=== PATIENT | female | born 1980 | race Caucasian/White ===

== ENCOUNTER 2017-05-01 20:02 | Outpatient (CLI) | payer MEDICAID ==
[2017-05-01] MEDS ORDERED: LACTATED RINGER'S 1,000 ML IV* (23:00)
[2017-05-01] MEDS: LACTATED RINGER'S 1,000 ML IV (23:26)
[2017-05-01] MEDS: BETAMET NA PHOS/AC(6 MG/ML) 5ML INJ IM (23:28)
[2017-05-02 00:18] LABS: ADD MAN DIFF? NO
[2017-05-02 00:22] LABS: WHITE BLOOD COUNT 9.4 10^3/ul (4.8-10.8)
[2017-05-02 00:22] LABS: BASOPHILS % 0.4 % (0.0-2.0); EOSINOPHILS # 0.1 10^3/ul (0.0-0.5); EOSINOPHILS % 0.6 % (0.0-7.0); HEMATOCRIT 31.8 % (37.0-47.0); HEMOGLOBIN 10.9 g/dl (12.0-16.0); LYMPHOCYTES % 21.4 % (15.0-51.0); MEAN CORPUSCULAR HEMOGLOBIN 29.1 pg (29.0-33.0); MEAN CORPUSCULAR HGB CONC 34.3 g/dl (32.0-37.0); MEAN PLATELET VOLUME 10.5 fl (7.4-10.4); MONOCYTE # 0.8 10^3/ul (0.3-0.9); MONOCYTES % 8.6 % (0.0-11.0); NEUTROPHIL # 6.4 10^3/ul (1.6-7.5); NEUTROPHILS % 68.4 % (39.0-77.0); PLATELET COUNT 174 10^3/UL (140-415); RED BLOOD COUNT 3.74 10^6/ul (4.20-5.40); RED CELL DISTRIBUTION WIDTH 13.1 % (11.5-14.5)
[2017-05-02 00:43] LABS: ADD UMIC YES; UR ASCORBIC ACID NEGATIVE (NEGATIVE); UR BILIRUBIN (Dip) NEGATIVE (NEGATIVE); UR BLOOD (Dip) NEGATIVE (NEGATIVE); UR CLARITY CLEAR (CLEAR); UR COLOR YELLOW (YELLOW); UR GLUCOSE (Dip) NEGATIVE (NEGATIVE); UR KETONES (Dip) NEGATIVE (NEGATIVE); UR LEUKOCYTE ESTERASE (Dip) 2+ Leu/ul (NEGATIVE); UR MUCUS FEW /HPF (NONE SEEN); UR NITRITE (Dip) NEGATIVE (NEGATIVE); UR RBC 1 /HPF (0-5); UR SPECIFIC GRAVITY (Dip) 1.012 (1.003-1.030); UR SQUAMOUS EPITHELIAL CELL FEW /HPF (FEW); UR TOTAL PROTEIN (Dip) NEGATIVE (NEGATIVE); UR UROBILINOGEN (Dip) NEGATIVE (NEGATIVE); UR WBC 3 /HPF (0-5)
== END 2017-05-02 01:41 | disposition home or self-care (01) ==
LOC: OBT 20:02 → L-D 20:11
DX: O60.03 Preterm labor without delivery, third trimester (principal); Z3A.34 34 weeks gestation of pregnancy
CPT/HCPCS: 36415; 76817; 81001; 85025; 87086; 96360; 96361; 96372

== ENCOUNTER 2017-05-02 21:37 | Outpatient (CLI) | payer MEDICAID ==
[2017-05-02] MEDS: BETAMET NA PHOS/AC(6 MG/ML) 5ML INJ IM (22:46)
== END 2017-05-02 22:55 | disposition home or self-care (01) ==
LOC: OBT 21:37 → L-D 21:39 → OBT 22:55
DX: O62.9 Abnormality of forces of labor, unspecified (principal); Z3A.34 34 weeks gestation of pregnancy
CPT/HCPCS: 96372

== ENCOUNTER 2017-05-10 19:01 | Outpatient (CLI) | payer MEDICAID ==
[2017-05-10] MEDS: LACTATED RINGER'S 1,000 ML IV ×2 (20:28→21:10)
[2017-05-10] MEDS: TERBUTALINE 1 MG/ML INJ SC ×2 (20:29→22:45)
[2017-05-10 21:25] LABS: ADD UMIC YES; UR ASCORBIC ACID NEGATIVE (NEGATIVE); UR BACTERIA FEW /HPF (NONE SEEN); UR BILIRUBIN (Dip) NEGATIVE (NEGATIVE); UR BLOOD (Dip) NEGATIVE (NEGATIVE); UR CLARITY CLEAR (CLEAR); UR COLOR YELLOW (YELLOW); UR GLUCOSE (Dip) NEGATIVE (NEGATIVE); UR KETONES (Dip) NEGATIVE (NEGATIVE); UR LEUKOCYTE ESTERASE (Dip) 3+ Leu/ul (NEGATIVE); UR MUCUS FEW /HPF (NONE SEEN); UR NITRITE (Dip) NEGATIVE (NEGATIVE); UR RBC 2 /HPF (0-5); UR SPECIFIC GRAVITY (Dip) 1.015 (1.003-1.030); UR SQUAMOUS EPITHELIAL CELL FEW /HPF (FEW); UR TOTAL PROTEIN (Dip) NEGATIVE (NEGATIVE); UR UROBILINOGEN (Dip) NEGATIVE (NEGATIVE); UR WBC 2 /HPF (0-5)
[2017-05-10 22:09] LABS: ADD MAN DIFF? NO
[2017-05-10 22:11] LABS: BASOPHILS % 0.3 % (0.0-2.0); EOSINOPHILS % 0.2 % (0.0-7.0); LYMPHOCYTES # 2.3 10^3/ul (0.8-2.9); LYMPHOCYTES % 22.1 % (15.0-51.0); MEAN CORPUSCULAR HEMOGLOBIN 29.3 pg (29.0-33.0); MEAN CORPUSCULAR HGB CONC 34.4 g/dl (32.0-37.0); MEAN CORPUSCULAR VOLUME 85.1 fl (82.0-101.0); MEAN PLATELET VOLUME 9.9 fl (7.4-10.4); MONOCYTE # 0.9 10^3/ul (0.3-0.9); MONOCYTES % 8.1 % (0.0-11.0); NEUTROPHIL # 7.2 10^3/ul (1.6-7.5); NEUTROPHILS % 68.4 % (39.0-77.0); PLATELET COUNT 171 10^3/UL (140-415); RED BLOOD COUNT 3.76 10^6/ul (4.20-5.40)
[2017-05-10 22:11] LABS: WHITE BLOOD COUNT 10.5 10^3/ul (4.8-10.8)
== END 2017-05-11 00:34 | disposition home or self-care (01) ==
LOC: OBT 19:01 → L-D 19:02 → OBT 05-11 00:34
DX: O60.03 Preterm labor without delivery, third trimester (principal); O34.219 Maternal care for unspecified type scar from previous cesarean delivery; O09.523 Supervision of elderly multigravida, third trimester; Z3A.35 35 weeks gestation of pregnancy; Z90.721 Acquired absence of ovaries, unilateral
CPT/HCPCS: 36415; 81001; 85025; 96360; 96361; 96372

== ENCOUNTER 2017-05-21 15:26 | Outpatient (CLI) | payer MEDICAID | END 2017-05-21 19:20 | disposition home or self-care (01) | LOC: OBT 15:26 → L-D 15:26 → OBT 19:20 | DX: O13.3 Gestational [pregnancy-induced] hypertension without significant proteinuria, third trimester (principal); O09.523 Supervision of elderly multigravida, third trimester | CPT/HCPCS: 93970 ==

== ENCOUNTER 2017-06-04 12:47 | Inpatient (IN) | payer MEDICAID ==
[~2017-06-04 12:47] MED LIST: OXYTOCIN 10 UNIT INJ
[2017-06-04] MEDS ORDERED: METHYLERGONOVINE 0.2 MG INJ IM ×2 (13:00→22:30)
[2017-06-04] MEDS ORDERED: MISOPROSTOL 200 MCG TAB PR ×2 (13:00→22:30)
[2017-06-04] MEDS ORDERED: CARBOPROST 250 MCG INJ IM ×2 (13:00→22:30)
[2017-06-04] MEDS ORDERED: CEFAZOLIN 2 GM/50 ML (PMX) 50 ML IV (13:00)
[2017-06-04] MEDS ORDERED: OXYTOCIN 30 UNITS/LR 500 ML IV ×3 (13:00→22:30)
[2017-06-04] MEDS: LACTATED RINGER'S 1,000 ML IV ×3 (14:24→22:25)
[2017-06-04 14:58] LABS: ADD MAN DIFF? NO
[2017-06-04 15:01] LABS: BASOPHILS % 0.4 % (0.0-2.0); EOSINOPHILS % 0.2 % (0.0-7.0); HEMATOCRIT 35.5 % (37.0-47.0); HEMOGLOBIN 11.8 g/dl (12.0-16.0); LYMPHOCYTES # 1.6 10^3/ul (0.8-2.9); LYMPHOCYTES % 17.2 % (15.0-51.0); MEAN CORPUSCULAR HEMOGLOBIN 28.7 pg (29.0-33.0); MEAN CORPUSCULAR HGB CONC 33.2 g/dl (32.0-37.0); MEAN CORPUSCULAR VOLUME 86.4 fl (82.0-101.0); MEAN PLATELET VOLUME 10.1 fl (7.4-10.4); MONOCYTE # 0.6 10^3/ul (0.3-0.9); MONOCYTES % 6.7 % (0.0-11.0); NEUTROPHIL # 7.1 10^3/ul (1.6-7.5); NEUTROPHILS % 74.9 % (39.0-77.0); PLATELET COUNT 198 10^3/UL (140-415); RED BLOOD COUNT 4.11 10^6/ul (4.20-5.40); RED CELL DISTRIBUTION WIDTH 13.3 % (11.5-14.5)
[2017-06-04 15:01] LABS: WHITE BLOOD COUNT 9.4 10^3/ul (4.8-10.8)
[2017-06-04 15:20] LABS: PROTIME 12.2 Sec (11.9-14.9)
[2017-06-04 15:21] LABS: PARTIAL THROMBOPLASTIN TIME 31.6 Sec (25.0-35.0)
[2017-06-04 15:52] LABS: HEPATITIS B SURFACE ANTIGEN NEGATIVE (NEGATIVE)
[2017-06-04] MEDS ORDERED: EPHEDrine SULFATE 50 MG/5 ML SYG (17:06)
[2017-06-04] MEDS ORDERED: morphine SULFATE/PF (10 MG/10 ML) INJ (17:06)
[2017-06-04] MEDS ORDERED: OXYTOCIN 10 UNIT INJ (17:07)
[2017-06-04] MEDS ORDERED: METOCLOPRAMIDE 10 MG INJ (17:07)
[2017-06-04] MEDS ORDERED: BUPIVACAINE 0.75%/DEXT (SPINAL) 2 ML INJ (17:07)
[2017-06-04] MEDS ORDERED: ONDANSETRON 4 MG INJ (17:07)
[2017-06-04] MEDS ORDERED: MIDAZOLAM 1 MG/ML 2 ML INJ (17:52)
[2017-06-04] MEDS: OXYTOCIN 30 UNITS/LR 500 ML IV (18:42)
[2017-06-04] MEDS ORDERED: morphine 2 MG INJ IV ×2 (19:30)
[2017-06-04] MEDS ORDERED: NALOXONE (0.4 MG/ML) INJ IV (19:30)
[2017-06-04] MEDS ORDERED: ONDANSETRON 4 MG INJ IV (19:30)
[2017-06-04] MEDS: morphine SULFATE/PF (10 MG/10 ML) INJ SPINAL (19:30)
[2017-06-04] MEDS ORDERED: EPHEDrine SULFATE 50 MG/5 ML SYG IV (19:30)
[2017-06-04] MEDS: KETOROLAC 30 MG INJ IV (20:04)
[2017-06-04] MEDS: DIPHENHYDRAMINE 50 MG INJ IV (22:13)
[2017-06-04 22:30] LABS: RAPID PLASMA REAGIN NONREACTIVE (NR)
[2017-06-04] MEDS: CLINDAMYCIN 300 MG CAP PO (23:28)
[2017-06-05] MEDS: CEFAZOLIN 2 GM/50 ML (PMX) 50 ML IV ×3 (01:58→18:37)
[2017-06-05] MEDS: CLINDAMYCIN 300 MG CAP PO ×3 (05:41→18:37)
[2017-06-05] MEDS: LACTATED RINGER'S 1,000 ML IV ×2 (06:37→14:36)
[2017-06-05] MEDS: BISACODYL 10 MG SUPP PR (10:30)
[2017-06-05] MEDS: SENNA/DOCUSATE NA (8.6MG/50MG) TAB PO ×2 (10:54→20:33)
[2017-06-05 12:31] LABS: ADD MAN DIFF? NO
[2017-06-05 12:35] LABS: WHITE BLOOD COUNT 10.8 10^3/ul (4.8-10.8)
[2017-06-05 12:35] LABS: BASOPHILS % 0.4 % (0.0-2.0); EOSINOPHILS % 0.2 % (0.0-7.0); HEMATOCRIT 31.5 % (37.0-47.0); HEMOGLOBIN 10.6 g/dl (12.0-16.0); LYMPHOCYTES # 1.1 10^3/ul (0.8-2.9); LYMPHOCYTES % 9.9 % (15.0-51.0); MEAN CORPUSCULAR HEMOGLOBIN 28.7 pg (29.0-33.0); MEAN CORPUSCULAR HGB CONC 33.7 g/dl (32.0-37.0); MEAN CORPUSCULAR VOLUME 85.4 fl (82.0-101.0); MEAN PLATELET VOLUME 9.8 fl (7.4-10.4); MONOCYTE # 0.8 10^3/ul (0.3-0.9); MONOCYTES % 7.2 % (0.0-11.0); NEUTROPHIL # 8.8 10^3/ul (1.6-7.5); NEUTROPHILS % 81.8 % (39.0-77.0); PLATELET COUNT 159 10^3/UL (140-415); RED BLOOD COUNT 3.69 10^6/ul (4.20-5.40); RED CELL DISTRIBUTION WIDTH 13.3 % (11.5-14.5)
[2017-06-05] MEDS: KETOROLAC 30 MG INJ IV (13:30)
[2017-06-05] MEDS: HYDROCODONE/APAP (5/325) TAB PO (20:34)
[2017-06-05] MEDS: IBUPROFEN 800 MG TAB PO (22:25)
[2017-06-06] MEDS: LACTATED RINGER'S 1,000 ML IV (03:18)
[2017-06-06] MEDS: CLINDAMYCIN 300 MG CAP PO ×4 (05:40→17:30)
[2017-06-06] MEDS: IBUPROFEN 800 MG TAB PO ×3 (05:40→21:56)
[2017-06-06] MEDS: OXYCODONE/ACETAMINOPHEN (5/325) TAB PO (08:13)
[2017-06-06] MEDS: LANOLIN 7 GM TUBE TOP (08:13)
[2017-06-06] MEDS: SENNA/DOCUSATE NA (8.6MG/50MG) TAB PO ×2 (08:13→21:56)
[2017-06-06] MEDS: NA PHOSPHATE/BIPHOS 133 ML ENEMA PR (10:28)
[2017-06-06 12:05] LABS: ADD MAN DIFF? NO
[2017-06-06 12:16] LABS: BASOPHILS % 0.4 % (0.0-2.0); EOSINOPHILS # 0.1 10^3/ul (0.0-0.5); EOSINOPHILS % 0.5 % (0.0-7.0); HEMATOCRIT 30.7 % (37.0-47.0); HEMOGLOBIN 10.3 g/dl (12.0-16.0); LYMPHOCYTES # 1.4 10^3/ul (0.8-2.9); LYMPHOCYTES % 12.9 % (15.0-51.0); MEAN CORPUSCULAR HEMOGLOBIN 28.9 pg (29.0-33.0); MEAN CORPUSCULAR HGB CONC 33.6 g/dl (32.0-37.0); MONOCYTE # 0.8 10^3/ul (0.3-0.9); MONOCYTES % 7.5 % (0.0-11.0); NEUTROPHIL # 8.6 10^3/ul (1.6-7.5); NEUTROPHILS % 78.2 % (39.0-77.0); PLATELET COUNT 175 10^3/UL (140-415); RED BLOOD COUNT 3.57 10^6/ul (4.20-5.40); RED CELL DISTRIBUTION WIDTH 13.6 % (11.5-14.5)
[2017-06-06] MEDS: BISACODYL 10 MG SUPP PR (16:43)
[2017-06-06] MEDS: HYDROCODONE/APAP (5/325) TAB PO (19:46)
[2017-06-07] MEDS: CLINDAMYCIN 300 MG CAP PO ×4 (00:16→17:30)
[2017-06-07] MEDS: IBUPROFEN 800 MG TAB PO ×2 (05:19→15:33)
[2017-06-07] MEDS: MEASLES,MUMPS,RUBELLA VACCINE INJ SC* (09:00)
[2017-06-07] MEDS: SENNA/DOCUSATE NA (8.6MG/50MG) TAB PO (09:09)
[2017-06-07 11:11] LABS: ADD MAN DIFF? NO
[2017-06-07 11:14] LABS: BASOPHILS % 0.4 % (0.0-2.0); EOSINOPHILS # 0.2 10^3/ul (0.0-0.5); EOSINOPHILS % 1.8 % (0.0-7.0); HEMATOCRIT 30.3 % (37.0-47.0); HEMOGLOBIN 9.9 g/dl (12.0-16.0); LYMPHOCYTES # 1.7 10^3/ul (0.8-2.9); LYMPHOCYTES % 18.5 % (15.0-51.0); MEAN CORPUSCULAR HEMOGLOBIN 28.1 pg (29.0-33.0); MEAN CORPUSCULAR HGB CONC 32.7 g/dl (32.0-37.0); MEAN CORPUSCULAR VOLUME 86.1 fl (82.0-101.0); MEAN PLATELET VOLUME 10.1 fl (7.4-10.4); MONOCYTE # 0.7 10^3/ul (0.3-0.9); MONOCYTES % 7.2 % (0.0-11.0); NEUTROPHIL # 6.6 10^3/ul (1.6-7.5); NEUTROPHILS % 71.4 % (39.0-77.0); PLATELET COUNT 194 10^3/UL (140-415); RED BLOOD COUNT 3.52 10^6/ul (4.20-5.40); RED CELL DISTRIBUTION WIDTH 13.8 % (11.5-14.5)
[2017-06-07 11:14] LABS: WHITE BLOOD COUNT 9.2 10^3/ul (4.8-10.8)
[2017-06-07] MEDS: HYDROCODONE/APAP (5/325) TAB PO (12:26)
[2017-06-07] MEDS: DIPHTH/TET/ACEL PERTUSS (ADULT) 0.5 ML VIAL IM* (13:56)
[2017-06-07] MEDS: LANOLIN 7 GM TUBE TOP (17:30)
== END 2017-06-07 18:12 | disposition home or self-care (01) | DRG 766 ==
LOC: L-D 12:47 → PP1 21:58
PROVIDERS: Obstetrics & Gynecology
PROC: 10D00Z1 Extraction of Products of Conception, Low, Open Approach (ICD-10-PCS; principal; 2017-06-04 15:00)
PROC: 0UB60ZZ Excision of Left Fallopian Tube, Open Approach (ICD-10-PCS; 2017-06-04 15:00)
DX: O34.219 Maternal care for unspecified type scar from previous cesarean delivery (principal); Z37.0 Single live birth; Z3A.39 39 weeks gestation of pregnancy; Z30.2 Encounter for sterilization; Z90.721 Acquired absence of ovaries, unilateral
CPT/HCPCS: 85025; 85610; 85730; 86592; 86850; 86900; 86901; 87340; 88305; 90715; 94760; 99464